=== PATIENT | male | born 1975 | race Two or more races ===

== ENCOUNTER 2016-06-25 11:10 | Emergency (ER) | payer OTHER ==
[2016-06-25 12:07] VITALS: BP 143/93; PULSE 78; TEMP 98.5; BMI 31.6
--- NOTE | 2016-06-25 13:16 | PDOC ---
History of Present Illness - General Chief Complaint: Foreign Body (FB) Stated Complaint: FOREIGN OBJECT IN EAR/ PAIN Time Seen by Provider: 06/25/16 12:51 History Source: Patient Exam Limitations: No Limitations - History of Present Illness Initial Comments: 06/25/16 13:14 qtip cotton stuck in left ear for 2 hrs Past History - Past Medical History Allergies/Adverse Reactions: Allergies Allergy/AdvReac Type Severity Reaction Status Date / Time No Known Allergies Allergy Verified 06/25/16 11:59 Home Medications: Ambulatory Orders NK [No Known Home Medication] 06/25/16 HTN: Yes Hypercholesterolemia: Yes - Surgical History Appendectomy: Yes - Psycho/Social/Smoking Cessation Hx Anxiety: No Suicidal Ideation: No Smoking Status: No Smoking History: Former smoker Have you smoked in the past 12 months: Yes Number of Cigarettes Smoked Daily: 3 Information on smoking cessation initiated: No Hx Alcohol Use: Yes (SOCIAL) Drug/Substance Use Hx: No Substance Use Type: None Review of Systems - Review of Systems Able to Perform ROS?: Yes Is the patient limited Greek proficient: No HEENTM: Yes: Symptoms Reported *Physical Exam - Vital Signs Last Vital Signs Temp Pulse Resp BP Pulse Ox 98.5 F 78 14 143/93 99 06/25/16 12:00 06/25/16 12:00 06/25/16 12:00 06/25/16 12:00 06/25/16 12:00 - Physical Exam General Appearance: Yes: Nourished, Appropriately Dressed HEENT: positive: EOMI, Other (left ear with white cotton in canal ) Procedures - Additional Procedures Progress: 06/25/16 13:15 white cotton removed from left ear with forceps Medical Decision Making - Medical Decision Making 06/25/16 13:15 cc: fb in left ear no pain *DC/Admit/Observation/Transfer Diagnosis at time of Disposition: Foreign body in ear Qualifiers: Encounter type: initial encounter Laterality: left Qualified Code(s): T16.2XXA - Foreign body in left ear, initial encounter - Discharge Dispostion Disposition: HOME Condition at time of disposition: Improved - Patient Instructions Additional Instructions: no Qtips or cotton swabs in the ear
== END 2016-06-25 13:38 | disposition home or self-care (01) ==
LOC: JERFT 11:10
DX: T16.2XXA Foreign body in left ear, initial encounter (principal); X58.XXXA Exposure to other specified factors, initial encounter; Y93.89 Activity, other specified; Z87.891 Personal history of nicotine dependence
CPT/HCPCS: 99281-25

== ENCOUNTER 2017-08-15 16:14 | Emergency (ER) | payer OTHER ==
[2017-08-15 16:21] VITALS: BP 133/84; PULSE 95; TEMP 98.7; BMI 31.6
[2017-08-15] MEDS ORDERED: SODIUM CHLORIDE 0.9% 1000 ML INFUS.BAG IV ONE (17:21)
--- NOTE | 2017-08-15 17:21 | PDOC ---
History of Present Illness - General History Source: Patient Exam Limitations: No Limitations - History of Present Illness Initial Comments: 08/15/17 19:21 The patient is a 41-year-old male, with a significant past medical history of HTN, who presents to the ED with 2 weeks of intermittent midsternal chest discomfort and palpitations. The patient states for the past few nights he has been tossing and turning in bed to try and find a comfortable position because he feels the palpitations in his chest. Denies any shortness of breath. The patient denies any fever, chills, nausea, vomiting, diarrhea, or abdominal pain. Allergies: NKDA Family History: HTN <Manisha Payne - Last Filed: 08/15/17 19:20> <Ramya Holt - Last Filed: 08/16/17 09:14> - General Chief Complaint: Chest Pain Stated Complaint: CHEST PAIN Time Seen by Provider: 08/15/17 17:02 Past History <Manisha Payne - Last Filed: 08/15/17 19:20> - Past Medical History COPD: No HTN: Yes Hypercholesterolemia: Yes - Surgical History Appendectomy: Yes - Suicide/Smoking/Psychosocial Hx Smoking Status: No Smoking History: Former smoker Have you smoked in the past 12 months: Yes Number of Cigarettes Smoked Daily: 3 Information on smoking cessation initiated: No Hx Alcohol Use: Yes (SOCIAL) Drug/Substance Use Hx: No Substance Use Type: None <Ramya Holt - Last Filed: 08/16/17 09:14> - Past Medical History Allergies/Adverse Reactions: Allergies Allergy/AdvReac Type Severity Reaction Status Date / Time No Known Allergies Allergy Verified 06/25/16 11:59 Home Medications: Ambulatory Orders NK [No Known Home Medication] 06/25/16 Review of Systems - Review of Systems Able to Perform ROS?: Yes Comments:: 08/15/17 19:28 GENERAL/CONSTITUTIONAL: No fever or chills. No weakness. HEAD, EYES, EARS, NOSE AND THROAT: No change in vision. No ear pain or discharge. No sore throat. CARDIOVASCULAR: (+)chest pain, palpitations. No shortness of breath. RESPIRATORY: No cough, wheezing, or hemoptysis. GASTROINTESTINAL: No nausea, vomiting, diarrhea or constipation. GENITOURINARY: No dysuria, frequency, or change in urination. MUSCULOSKELETAL: No joint or muscle swelling or pain. No neck or back pain. SKIN: No rash NEUROLOGIC: No headache, vertigo, loss of consciousness, or change in strength/ sensation. ENDOCRINE: No increased thirst. No abnormal weight change. HEMATOLOGIC/LYMPHATIC: No anemia, easy bleeding, or history of blood clots. ALLERGIC/IMMUNOLOGIC: No hives or skin allergy. <Manisha Payne - Last Filed: 08/15/17 19:20> *Physical Exam - Vital Signs Last Vital Signs Temp Pulse Resp BP Pulse Ox 98.7 F 95 H 18 133/84 98 08/15/17 16:18 08/15/17 16:18 08/15/17 16:18 08/15/17 16:18 08/15/17 16:18 - Physical Exam Comments: 08/15/17 19:29 GENERAL: Awake, alert, and fully oriented, in no acute distress HEAD: No signs of trauma EYES: PERRLA, EOMI, sclera anicteric, conjunctiva clear ENT: Auricles normal inspection, hearing grossly normal, nares patent, oropharynx clear without exudates. Moist mucosa NECK: Normal ROM, supple, no lymphadenopathy, JVD, thyromegaly, or masses LUNGS: Breath sounds equal, clear to auscultation bilaterally. No wheezes, and no crackles HEART: Regular rate and rhythm, normal S1 and S2, no murmurs, rubs or gallops ABDOMEN: Soft, nontender, normoactive bowel sounds. No guarding, no rebound. No masses EXTREMITIES: Normal range of motion, no edema. No clubbing or cyanosis. No cords, erythema, or tenderness NEUROLOGICAL: Cranial nerves II through XII grossly intact. Normal speech, normal gait SKIN: Warm, Dry, normal turgor, no rashes or lesions noted <Manisha Payne - Last Filed: 08/15/17 19:20> - Vital Signs Last Vital Signs Temp Pulse Resp BP Pulse Ox 98.7 F 95 H 18 133/84 98 08/15/17 16:18 08/15/17 16:18 08/15/17 16:18 08/15/17 16:18 08/15/17 16:18 <Ramya Holt - Last Filed: 08/16/17 09:14> Heart Score/ECG Review - ECG Intrepretation Comment:: 08/15/17 17:34 sinus at 87, nl axis, nl interval, early repol anterior leads, [id number] - abnl ekg <Ramya Holt - Last Filed: 08/16/17 09:14> ED Treatment Course - LABORATORY CBC & Chemistry Diagram: 08/15/17 17:35 08/15/17 17:35 - ADDITIONAL ORDERS Additional order review: Laboratory Results 08/15/17 08/15/17 17:35 17:35 D-Dimer < 104 Sodium Cancelled Potassium Cancelled Chloride Cancelled Carbon Dioxide Cancelled Anion Gap Cancelled BUN Cancelled Creatinine Cancelled Creat Clearance w eGFR Cancelled Random Glucose Cancelled Calcium Cancelled Total Bilirubin Cancelled AST Cancelled ALT Cancelled Alkaline Phosphatase Cancelled Creatine Kinase Cancelled Troponin I Cancelled Total Protein Cancelled Albumin Cancelled TSH Cancelled 08/15/17 17:35 RBC 4.69 MCV 84.4 MCHC 34.4 RDW 14.1 MPV 9.5 Neutrophils % 61.8 Lymphocytes % 27.5 Monocytes % 7.9 Eosinophils % 1.8 Basophils % 1.0 - Medications Given in the ED: ED Medications Discontinued Medications Generic Name Dose Route Start Last Admin Trade Name Freq PRN Reason Stop Dose Admin Sodium Chloride 1,000 ml 08/15/17 17:21 08/15/17 17:52 Normal Saline - IV 08/15/17 17:22 1,000 ml ONCE ONE Administration <Manisha Payne - Last Filed: 08/15/17 19:20> - LABORATORY CBC & Chemistry Diagram: 08/15/17 17:35 08/15/17 19:38 <Ramya Holt - Last Filed: 08/16/17 09:14> Medical Decision Making - Medical Decision Making 08/15/17 17:33 a/p: 41yo male with palpitations and midsternal chest pressure -hx of htn -no radiation of the pain -fam hx of htn -wt gain -no leg swelling, calf cramping, risk factors for PE -will check labs, ekg, cxr, dimer, tsh -will monitor and reassess 08/16/17 09:13 pt signed out to the oncoming ED physician pending labs and cxr <Ramay Holt - Last Filed: 08/16/17 09:14> *DC/Admit/Observation/Transfer - Attestations Scribe Attestion: 08/15/17 19:31 Documentation prepared by Manisha Payne, acting as medical asst for Ramya Holt DO. <Manisha Payne - Last Filed: 08/15/17 19:20> - Attestations Physician Attestion: 08/16/17 09:14 I, Dr. Ramya Holt DO, attest that this document has been prepared under my direction and personally reviewed by me in its entirety. I further attest, that it accurately reflects all work, treatment, procedures and medical decision -making performed by me. <Ramya Holt - Last Filed: 08/16/17 09:14> Diagnosis at time of Disposition: Intermittent palpitations, Chest pain - Discharge Dispostion Disposition: HOME Condition at time of disposition: Stable - Referrals - Patient Instructions Printed Discharge Instructions: DI for Chest Pain Additional Instructions: As discussed, follow up with Dr. Silver next week as scheduled. You may need a heart monitor to further try to understand the cause of your palpitations and chest pain. Return to the emergency department if you have any new, worsening or concerning symptoms. Print Language: GEORGIAN - Post Discharge Activity
[2017-08-15 17:53] LABS: EOS % 1.8 % (0-4.5); HEMATOCRIT 39.6 % (35.4-49); HEMOGLOBIN 13.6 GM/dL (11.7-16.9); LYMPH % 27.5 % (8-40); MCHC 34.4 g/dl (32.0-35.9); MEAN CELL VOLUME 84.4 fl (80-96); MEAN PLT VOLUME 9.5 fl (7.5-11.1); MONO % 7.9 % (3.8-10.2); NEUT % 61.8 % (42.8-82.8); PLATELET COUNT 199 K/MM3 (134-434); RBC 4.69 M/mm3 (4.00-5.60); RDW 14.1 % (11.9-15.9); WHITE BLOOD COUNT 6.8 K/mm3 (4.0-10.0)
[2017-08-15 20:11] LABS: ALBUMIN 3.9 g/dl (3.4-5.0); ANION GAP 4 (8-16); BILIRUBIN,TOTAL 0.1 mg/dL (0.2-1.0); BLOOD UREA NITROGEN 13 mg/dL (7-18); CALCIUM 8.6 mg/dL (8.5-10.1); CHLORIDE 107 mmol/L (98-107); CO2 29 mmol/L (21-32); GLUCOSE,RANDOM 80 mg/dL (74-106); POTASSIUM 4.1 mmol/L (3.5-5.1); SGOT/AST 20 U/L (15-37); SGPT/ALT 39 U/L (12-78); SODIUM 140 mmol/L (136-145); TOT PROT 7.3 g/dl (6.4-8.2)
[2017-08-15 20:14] LABS: ALK PHOS 73 U/L (45-117)
--- NOTE | 2017-08-15 21:04 | PDOC ---
*Physical Exam - Vital Signs Last Vital Signs Temp Pulse Resp BP Pulse Ox 98.7 F 95 H 18 133/84 98 08/15/17 16:18 08/15/17 16:18 08/15/17 16:18 08/15/17 16:18 08/15/17 16:18 ED Treatment Course - LABORATORY CBC & Chemistry Diagram: 08/15/17 17:35 08/15/17 19:38 - ADDITIONAL ORDERS Additional order review: Laboratory Results 08/15/17 08/15/17 08/15/17 19:38 17:35 17:35 D-Dimer < 104 Sodium 140 Cancelled Potassium 4.1 Cancelled Chloride 107 Cancelled Carbon Dioxide 29 Cancelled Anion Gap 4 L Cancelled BUN 13 Cancelled Creatinine 1.0 Cancelled Creat Clearance w eGFR > 60 Cancelled Random Glucose 80 Cancelled Calcium 8.6 Cancelled Total Bilirubin 0.1 L Cancelled AST 20 Cancelled ALT 39 Cancelled Alkaline Phosphatase 73 Cancelled Creatine Kinase 153 Cancelled Creatine Kinase Index 0.6 CK-MB (CK-2) < 1.000 Troponin I < 0.02 Cancelled Total Protein 7.3 Cancelled Albumin 3.9 Cancelled TSH Cancelled 08/15/17 17:35 RBC 4.69 MCV 84.4 MCHC 34.4 RDW 14.1 MPV 9.5 Neutrophils % 61.8 Lymphocytes % 27.5 Monocytes % 7.9 Eosinophils % 1.8 Basophils % 1.0 - Medications Given in the ED: ED Medications Discontinued Medications Generic Name Dose Route Start Last Admin Trade Name Freq PRN Reason Stop Dose Admin Sodium Chloride 1,000 ml 08/15/17 17:21 08/15/17 17:52 Normal Saline - IV 08/15/17 17:22 1,000 ml ONCE ONE Administration Medical Decision Making - Medical Decision Making 08/15/17 20:46 Care received at 1900. Briefly, patient presents emergency Department with chest pain and palpitations , XR clear, labs were pending. Labs thus far wnl, including neg trop. TSH pending. Explained results to pt. Pt currently CP free and clinically well appearing 08/15/17 21:12 TSH wnl. Pt feels well, has appt with PMD Dr. Silver nxt week. Requests DC home. I discussed the physical exam findings, ancillary test results and final diagnoses with the patient. I answered all of the patient's questions. The patient was satisfied with the care received and felt comfortable with the discharge plan and treatment plan. The patient will call their primary care physician within 24 hours to arrange follow-up and will return to the Emergency Department with any new, persistent or worsening symptoms. *DC/Admit/Observation/Transfer Diagnosis at time of Disposition: Intermittent palpitations, Chest pain - Discharge Dispostion Disposition: HOME Condition at time of disposition: Stable Admit: No - Referrals - Patient Instructions Printed Discharge Instructions: DI for Chest Pain Additional Instructions: As discussed, follow up with Dr. Silver next week as scheduled. You may need a heart monitor to further try to understand the cause of your palpitations and chest pain. Return to the emergency department if you have any new, worsening or concerning symptoms. Print Language: AZERI - Post Discharge Activity - Attestations Physician Attestion: 08/15/17 21:14 I, Dr. Tracy Cantu MD, attest that this document has been prepared under my direction and personally reviewed by me in its entirety. I further attest, that it accurately reflects all work, treatment, procedures and medical decision -making performed by me.
--- NOTE | 2017-08-17 11:38 | EKG ---
Test Reason : Blood Pressure : / mmHG Vent. Rate : 087 BPM Atrial Rate : 087 BPM P-R Int : 154 ms QRS Dur : 090 ms QT Int : 330 ms P-R-T Axes : 062 067 042 degrees QTc Int : 397 ms NORMAL SINUS RHYTHM NONSPECIFIC ST AND T WAVE ABNORMALITY ABNORMAL ECG NO PREVIOUS ECGS AVAILABLE Confirmed by LYUBOV DUARTE MD ([id number]) on 08/17/2017 11:37:47 AM Referred By: Confirmed By:LYUBOV DUARTE MD
== END 2017-08-15 21:27 | disposition home or self-care (01) ==
LOC: JER 16:14
DX: R07.89 Other chest pain (principal); R00.2 Palpitations; I10 Essential (primary) hypertension; F17.210 Nicotine dependence, cigarettes, uncomplicated
CPT/HCPCS: 36415; 71046-TC-FY; 80053; 82550; 82553; 84443; 84484; 85025; 85379; 93005; 93010; 99283-25; J7030

== ENCOUNTER 2018-02-07 04:22 | Emergency (ER) | payer OTHER ==
--- NOTE | 2018-02-07 04:28 | PDOC ---
History of Present Illness - General Stated Complaint: ABDOMINAL PAIN Time Seen by Provider: 02/07/18 04:28 Past History - Past Medical History Allergies/Adverse Reactions: Allergies Allergy/AdvReac Type Severity Reaction Status Date / Time No Known Allergies Allergy Verified 06/25/16 11:59 Home Medications: Ambulatory Orders NK [No Known Home Medication] 06/25/16 COPD: No HTN: Yes Hypercholesterolemia: Yes - Surgical History Appendectomy: Yes - Suicide/Smoking/Psychosocial Hx Smoking Status: No Smoking History: Former smoker Have you smoked in the past 12 months: Yes Number of Cigarettes Smoked Daily: 3 Hx Alcohol Use: Yes (SOCIAL) Drug/Substance Use Hx: No Substance Use Type: None
[2018-02-07] MEDS ORDERED: SODIUM CHLORIDE 1,000 ML IV STA (04:30)
--- NOTE | 2018-02-07 04:36 | PDOC ---
History of Present Illness - General Stated Complaint: ABDOMINAL PAIN Time Seen by Provider: 02/07/18 04:28 History Source: Patient - History of Present Illness Initial Comments: 02/07/18 05:50 42-year-old male presents to the emergency department complaining of right sided flank pain. Pain is described as 10/10 sharp constant discomfort radiating to the right groin without fever, chills, nausea/vomiting, neck/back pains, chest pain, shortness of breath, abdominal pains, urinary symptoms: Frequency/urgency/hesitancy, hematuria. Patient denies similar symptoms. Patient had laparoscopic appendectomy 8 years ago and states the pain feels different and his lower into the groin region. Patient came to the emergency department rithing in pain. Patient was not able to sit still and kept walking around demanding pain medication. Past History - Past Medical History Allergies/Adverse Reactions: Allergies Allergy/AdvReac Type Severity Reaction Status Date / Time No Known Allergies Allergy Verified 02/07/18 04:42 Home Medications: Ambulatory Orders NK [No Known Home Medication] 06/25/16 COPD: No HTN: Yes Hypercholesterolemia: Yes - Surgical History Appendectomy: Yes - Suicide/Smoking/Psychosocial Hx Smoking Status: No Smoking History: Former smoker Have you smoked in the past 12 months: Yes Number of Cigarettes Smoked Daily: 3 Hx Alcohol Use: Yes (SOCIAL) Drug/Substance Use Hx: No Substance Use Type: None Review of Systems - Review of Systems Able to Perform ROS?: Yes Comments:: 02/07/18 05:49 CONSTITUTIONAL: Absent: fever, chills, diaphoresis, generalized weakness, malaise, loss of appetite HEENT: Absent: rhinorrhea, nasal congestion, throat pain, throat swelling, difficulty swallowing, mouth swelling, ear pain, eye pain, visual Changes CARDIOVASCULAR: Absent: chest pain, loss of consciousness, palpitations, irregular heart rate, peripheral edema RESPIRATORY: Absent: cough, shortness of breath, dyspnea with exertion, orthopnea, wheezing, stridor, hemoptysis GASTROINTESTINAL: Absent: abdominal pain, abdominal distension, nausea, vomiting, diarrhea, constipation, melena, hematochezia GENITOURINARY: +Right flank pain radiating to the right groin Absent: dysuria, frequency, urgency, hesitancy, hematuria, genital pain MUSCULOSKELETAL: Absent: myalgia, arthralgia, joint swelling SKIN: Absent: rash, itching, pallor HEMATOLOGIC/IMMUNOLOGIC: Absent: easy bleeding, easy bruising, lymphadenopathy, frequent infections *Physical Exam - Physical Exam Comments: 02/07/18 05:49 GENERAL: Well developed, well nourished. Awake and alert. No acute distress. HEENT: Normocephalic, atraumatic. PERRLA, EOMI. No conjunctival pallor. Sclera are non- icteric. Moist mucous membranes. Oropharynx is clear. NECK: Supple. Full ROM. No JVD. Carotid pulses 2+ and symmetric, without bruits. No thyromegaly. No lymphadenopathy. CARDIOVASCULAR: Regular rate and rhythm. No murmurs, rubs, or gallops. Distal pulses are 2+ and symmetric. PULMONARY: No evidence of respiratory distress. Lungs clear to auscultation bilaterally. No wheezing, rales or rhonchi. ABDOMINAL: +Right cvat Soft. Non-tender. Non-distended. No rebound or guarding. No organomegaly. Normoactive bowel sounds. MUSCULOSKELETAL Normal range of motion at all joints. No bony deformities or tenderness. EXTREMITIES: No cyanosis. No clubbing. No edema. No calf tenderness. SKIN: Warm and dry. Normal capillary refill. No rashes. No jaundice. NEUROLOGICAL: Alert, awake, appropriate. Cranial nerves 2-12 intact. No deficits to light touch and temperature in face, upper extremities and lower extremities. No motor deficits in the in face, upper extremities and lower extremities. Normoreflexic in the upper and lower extremities. Normal speech. Toes are down- going bilaterally. Gait is normal without ataxia. PSYCHIATRIC: Cooperative. Good eye contact. Appropriate mood and affect. ED Treatment Course - LABORATORY CBC & Chemistry Diagram: 02/07/18 04:32 02/07/18 04:32 - RADIOLOGY Radiograph Interpretation: 02/07/18 06:09 CT renal colic: Small nonobstructing right renal stones. No right or left ureteral stone or urinary tract obstruction. No bowel structure in or inflammation Normal liver except for tiny granulomas Normal spleen/pancreas/adrenal glands/gallbladder *DC/Admit/Observation/Transfer Diagnosis at time of Disposition: Renal calculus, right - Discharge Dispostion Disposition: HOME Condition at time of disposition: Stable Decision to Admit order: No - Referrals Referrals: ON STAFF,NOT [Primary Care Provider] - Josh Harris MD [Staff Physician] - - Patient Instructions Additional Instructions: Increase fluids Follow up with the urologist this week Tylenol alternate with motrin as needed for pain Return back to the emergency department for severe/persistent or worsening symptoms Print Language: ENG - Post Discharge Activity Progress Note - Progress Note Progress Note: 0547hrs: Right arm/ pt laying supine; 146/80
[2018-02-07] MEDS ORDERED: KETOROLAC TROMETHAMINE 30 MG/1 ML VIAL IM ONE (04:37)
[2018-02-07] MEDS ORDERED: KETOROLAC TROMETHAMINE 30 MG/1 ML VIAL ONE (04:39)
[2018-02-07 04:42] VITALS: PULSE 74; TEMP 98.4; BMI 31.6
[2018-02-07 04:42] LABS: BASO % 0.8 % (0-2.0); EOS % 3.8 % (0-4.5); HEMATOCRIT 41.7 % (35.4-49); HEMOGLOBIN 14.3 GM/dL (11.7-16.9); LYMPH % 36.4 % (8-40); MCH 28.4 pg (25.7-33.7); MCHC 34.3 g/dl (32.0-35.9); MEAN CELL VOLUME 82.6 fl (80-96); MEAN PLT VOLUME 9.1 fl (7.5-11.1); MONO % 10.3 % (3.8-10.2); NEUT % 48.7 % (42.8-82.8); PLATELET COUNT 216 K/MM3 (134-434); RBC 5.05 M/mm3 (4.00-5.60); RDW 14.1 % (11.9-15.9)
[2018-02-07 04:44] LABS: URINE APPEARANCE CLEAR; URINE BILIRUBIN NEGATIVE (<2.0 mg/dL); URINE COLOR STRAW; URINE GLUCOSE (UA) NEGATIVE (NEGATIVE); URINE KETONE NEGATIVE (NEGATIVE); URINE LEUK ESTERASE NEGATIVE (NEGATIVE); URINE NITRITE NEGATIVE (NEGATIVE); URINE PROTEIN NEGATIVE (NEGATIVE); URINE UROBILINOGEN NEGATIVE mg/dL (0.2-1.0)
[2018-02-07 04:49] LABS: EPI CELLS RARE /HPF (FEW); URINE HYALINE CAST 1 /lpf
[2018-02-07 05:06] LABS: ALBUMIN 3.9 g/dl (3.4-5.0); ALK PHOS 103 U/L (45-117); ANION GAP 9 MMOL/L (8-16); BILIRUBIN,TOTAL 0.3 mg/dL (0.2-1); BLOOD UREA NITROGEN 17 mg/dL (7-18); CALCIUM 8.9 mg/dL (8.5-10.1); CHLORIDE 107 mmol/L (98-107); CO2 24 mmol/L (21-32); CREATININE 1.1 mg/dL (0.55-1.3); GLUCOSE,RANDOM 115 mg/dL (74-106); POTASSIUM 4.4 mmol/L (3.5-5.1); SGOT/AST 47 U/L (15-37); SGPT/ALT 77 U/L (13-61); SODIUM 141 mmol/L (136-145); TOT PROT 7.9 g/dl (6.4-8.2)
[2018-02-07 06:03] VITALS: BP 146/80
== END 2018-02-07 06:14 | disposition home or self-care (01) ==
LOC: JER 04:22
PROC: 3E0337Z Introduction of Electrolytic and Water Balance Substance into Peripheral Vein, Percutaneous Approach (ICD-10-PCS; principal; 2018-02-07)
PROC: 3E0233Z Introduction of Anti-inflammatory into Muscle, Percutaneous Approach (ICD-10-PCS; 2018-02-07)
DX: N20.0 Calculus of kidney (principal)
CPT/HCPCS: 36415; 74176; 80053; 81003; 81015; 85025; 96360; 96372; 99283-25; J7030

== ENCOUNTER 2020-04-25 20:17 | Emergency (ER) | payer OTHER ==
[2020-04-25 20:32] VITALS: BP 146/93; PULSE 85; TEMP 98.5; BMI 32.4
== END 2020-04-25 21:28 | disposition home or self-care (01) ==
LOC: JER 20:17 → JERFT 20:17
DX: H60.92 Unspecified otitis externa, left ear (principal)
CPT/HCPCS: 99282-25

== ENCOUNTER 2020-09-17 06:21 | Day surgery (SDC) | payer OTHER ==
[2020-09-14 14:38] VITALS: BMI 32.8
[2020-09-17] MEDS ORDERED: KETOROLAC TROMETHAMINE 30 MG/1 ML VIAL ONE (16:21)
[2020-09-17] MEDS ORDERED: PROPOFOL 20 ML ONE (16:21)
[2020-09-17] MEDS ORDERED: MIDAZOLAM HCL 2 MG/2 ML SINGLE DOSE VIAL ONE (16:21)
[2020-09-17 18:51] VITALS: BP 138/77; PULSE 60; TEMP 98.1
== END 2020-09-17 18:35 | disposition home or self-care (01) ==
LOC: JASU-SURG 06:21
PROVIDERS: ATTEND Urology
PROC: 0TF3XZZ Fragmentation in Right Kidney Pelvis, External Approach (ICD-10-PCS; principal; 2020-09-17 14:30)
DX: N20.0 Calculus of kidney (principal)

== ENCOUNTER 2021-01-01 17:59 | Emergency (ER) | payer OTHER ==
[2021-01-01 18:29] VITALS: BP 111/61; PULSE 67; TEMP 98.3; BMI 28.3
[2021-01-01] MEDS ORDERED: IBUPROFEN 600 MG TABLET (FP) PO ONE ×2 (19:48→19:55)
== END 2021-01-01 20:43 | disposition home or self-care (01) ==
LOC: JERFT 17:59
DX: H66.91 Otitis media, unspecified, right ear (principal)
CPT/HCPCS: 99283-25; C9803; U0003; U0005

== ENCOUNTER 2021-08-05 15:50 | Emergency (ER) | payer OTHER ==
[2021-08-05 16:12] VITALS: BP 118/77; PULSE 69; TEMP 98.6; BMI 32.3
[2021-08-05] MEDS ORDERED: ACETAMINOPHEN 500 MG TABLET (FP) PO ONE (17:09)
[2021-08-05] MEDS ORDERED: ACETAMINOPHEN 325 MG TABLET (FP) ONE (17:13)
[2021-08-05 17:43] LABS: BASO % 0.7 % (0-2.0); EOS % 2.4 % (0-4.5); HEMATOCRIT 41.3 % (35.4-49); LYMPH % 25.1 % (8-40); MCH 28.1 pg (25.7-33.7); MEAN CELL VOLUME 82.6 fl (80-96); MEAN PLT VOLUME 9.3 fl (7.5-11.1); MONO % 7.9 % (3.8-10.2); NEUT % 63.9 % (42.8-82.8); PLATELET COUNT 214 10^3/uL (134-434); RDW 14.7 % (11.9-15.9); WHITE BLOOD COUNT 6.5 K/mm3 (4.0-10.0)
[2021-08-05 18:13] LABS: BLOOD UREA NITROGEN 16.6 mg/dL (7-18)
[2021-08-05 18:14] LABS: ALBUMIN 3.7 g/dl (3.4-5.0); CALCIUM 8.7 mg/dL (8.5-10.1)
[2021-08-05 18:16] LABS: CREATININE 1.1 mg/dL (0.55-1.3)
[2021-08-05 18:17] LABS: BILIRUBIN,TOTAL 0.4 mg/dL (0.2-1); TOT PROT 7.5 g/dl (6.4-8.2)
== END 2021-08-05 20:18 | disposition home or self-care (01) ==
LOC: JER 15:50
DX: R07.9 Chest pain, unspecified (principal)
CPT/HCPCS: 36415; 71046-TC-FY; 80053; 84484; 85025; 93005; 93010; 99285-25

== ENCOUNTER 2022-01-25 02:57 | Emergency (ER) | payer OTHER ==
[2022-01-25 03:03] VITALS: BMI 29.1
[2022-01-25] MEDS ORDERED: ACETAMINOPHEN 500 MG TABLET (FP) PO ONE (03:40)
[2022-01-25] MEDS ORDERED: METHOCARBAMOL 500 MG TABLET PO ONE (03:41)
[2022-01-25] MEDS ORDERED: DEXAMETHASONE SOD PHOSPHATE 10 MG/1 ML VIAL IM ONE (03:41)
[2022-01-25] MEDS ORDERED: LIDOCAINE 5% TOPICAL PATCH TP ONE (03:41)
[2022-01-25] MEDS ORDERED: DEXAMETHASONE SOD PHOSPHATE 10 MG/1 ML VIAL ONE (03:50)
[2022-01-25] MEDS ORDERED: ACETAMINOPHEN 325 MG TABLET (FP) ONE (03:50)
[2022-01-25] MEDS ORDERED: METHOCARBAMOL 500 MG TABLET ONE (03:50)
[2022-01-25] MEDS ORDERED: LIDOCAINE 5% TOPICAL PATCH ONE (03:51)
[2022-01-25] MEDS ORDERED: IBUPROFEN 400 MG TABLET (FP) PO ONE ×2 (07:25→07:27)
[2022-01-25 07:34] VITALS: BP 141/84; PULSE 70; RESP 15; TEMP 98.4
[2022-01-25] MEDS ORDERED: LIDOCAINE PATCH REMOVAL MC ONE (16:00)
== END 2022-01-25 07:30 | disposition home or self-care (01) ==
LOC: JER 02:57
PROC: 3E0233Z Introduction of Anti-inflammatory into Muscle, Percutaneous Approach (ICD-10-PCS; principal; 2022-01-25)
DX: M79.605 Pain in left leg (principal); M54.32 Sciatica, left side
CPT/HCPCS: 72131-TC; 99284-25; J1100